=== PATIENT | female | born 1980 ===

== ENCOUNTER 2022-11-06 10:00 | Outpatient (CLI) | payer OTHER | END 2022-11-06 10:15 | disposition home or self-care (01) | LOC: PPH VACUNA 10:00 | PROVIDERS: ATTEND Emergency Medicine Pediatric Emergency Medicine | DX: Z23 Encounter for immunization (principal) ==

== ENCOUNTER 2023-06-19 09:00 | Outpatient (CLI) | payer OTHER | END 2023-06-19 09:10 | disposition home or self-care (01) | LOC: PPH VACUNA 09:00 | PROVIDERS: ATTEND Emergency Medicine Pediatric Emergency Medicine | DX: Z23 Encounter for immunization (principal) ==